=== PATIENT | female | born 1995 | race Caucasian/White ===

== ENCOUNTER 2016-05-09 13:20 | Emergency (ER) | payer OTHER ==
[~2016-05-09] VITALS: Wt 69.0 kg
[~2016-05-09 13:20] MED LIST: AMO500 PO
--- NOTE | 2016-05-09 15:43 | ERD ---
ER Documentation Chief Complaint Date/Time DATE: 05/09/16 TIME: 15:39 Chief Complaint 16WKS PREG. NO OB COMPLAINTS SORE THROAT AND EAR PAIN FOR 1 WK HPI This patient is a 21-year-old female who is a Ab0 LC 1, currently approximately 16 weeks presenting to the emergency department for sore throat and bilateral ear pain which is been ongoing for 1 week. She states her symptoms have been worsening. Additionally she reports congestion. She has taken no medication at home for relief of her symptoms. She denies any vaginal bleeding, cramping, nausea, vomiting, diarrhea, or other symptoms at this time. ROS All systems reviewed and are negative except as per history of present illness. Medications Home Meds Active Scripts Amoxicillin* (Amoxicillin*) 500 Mg Cap, 500 MG PO BID for 7 Days, CAP Prov:RAINA HAMMOND PA-C 08/01/15 Allergies Allergies: Coded Allergies: No Known Allergy (Unverified , 04/28/11) PMhx/Soc History of Surgery: No Anesthesia Reaction: No Hx Neurological Disorder: No Hx Respiratory Disorders: No Hx Cardiac Disorders: No Hx Psychiatric Problems: No Hx Miscellaneous Medical Probl: No (no other medical problems) Hx Alcohol Use: No Hx Substance Use: No Hx Tobacco Use: No FmHx Noncontributory for chief complaint Physical Exam Vitals Vital Signs Date Time Temp Pulse Resp B/P Pulse Ox O2 Delivery O2 Flow Rate FiO2 05/09/16 13:25 99.2 80 21 118/56 98 Physical Exam INITIAL VITAL SIGNS: Reviewed by me. GENERAL: Alert and interactive. No acute distress. HEAD: Head is normocephalic and atraumatic. EYES: EOMI. No scleral icterus. No conjunctival injection. ENT: Moist mucosa. Slight tonsillar erythema and hypertrophy with scant exudate. There is no uvular shift. NECK: Supple. Full range of motion. RESPIRATORY: Normal respiratory effort. Clear breath sounds bilaterally. No wheezing, rales, or rhonchi. CV: Regular rate and rhythm. Normal S1 S2. No S3 or S4. No murmurs. ABDOMEN: Gravid abdomen, soft, non-distended, non-tender. No guarding. No rebound. No masses. EXTREMITIES: No deformity. SKIN: Warm and dry. NEUROLOGIC: Alert and oriented x 4. Speech is normal. Moves all extremities equally. No motor or sensory deficits noted. Procedures/MDM 21-year-old female currently 16 weeks presents secondary to complaints of sore throat ongoing for 1 week. She also reports bilateral ear pain. There is some scant exudate and tonsillar hypertrophy with erythema on examination. Patient's vitals are all within normal limits. Patient's diagnosis is pharyngitis presumed strep. The patient is less than 20 weeks and has no OB complaints and do not feel it is indicated to call labor and delivery at this time. I have low suspicion for peritonsillar abscess, retropharyngeal abscess, otitis media, mastoiditis, or other emergent conditions at this time. Patient will be treated with amoxicillin and Tylenol. She agrees with the plan and diagnosis and her questions and concerns were addressed. The patient is hemodynamically stable for discharge she was advised to return to the emergency department immediately if any vaginal bleeding, cramping, fever, chills, or other abnormal symptoms occur. She understands this information. Departure Diagnosis: Primary Impression: Pharyngitis Condition: Stable Additional Instructions: Follow-up with your primary care physician within 1 week. Return to the emergency department immediately should you have any new or worsening symptoms, uncontrolled fevers, or other unexplained symptoms. Take all medications as directed. ODALIS SANCHEZ PA-C May 09, 2016 15:43
[2016-05-09] MEDS ORDERED: AMO500 PO (15:44)
[2016-05-09] MEDS ORDERED: ACET325T45 PO (15:44)
== END 2016-05-09 17:11 | disposition home or self-care (01) ==
LOC: FTE 13:20
DX: O99.512 Diseases of the respiratory system complicating pregnancy, second trimester (principal); J02.9 Acute pharyngitis, unspecified; Z3A.16 16 weeks gestation of pregnancy
CPT/HCPCS: 99283